=== PATIENT | female | born 1950 | race Caucasian/White ===

== ENCOUNTER 2016-06-10 09:39 | Day surgery (SDC) | payer OTHER ==
[~2016-06-10] VITALS: Ht 157.5 cm; Wt 91.6 kg
[~2016-06-10 09:39] MED LIST: ACARBOSE25 MG PO; ACCOLATE20 MG PO; ADVAIR 250/501 DISK IH; ALEVE220 MG PO; ALLEGRA180 MG PO; ASPIR 8181 M1 PO; ASPIR-TRIN325 M1 PO; BENICAR40 MG PO; BENZONATATE200 MG PO; CARDIZEM CD300 MG PO; CATAPRES0.2 MG PO; CEFTIN500 MG PO; CELEXA40 MG PO; CITALOPRAM HBR40 MG PO; CLONAZEPAM0.5 MG PO; CLONIDINE HCL0.2 MG PO; CYMBALTA60 MG PO; DEXILANT60 MG PO; DILTIAZEM 24HR300 MG PO; DIOVAN320 MG PO; DULERA 200 MCG/13 GM IH; ERGOCALCIF50000 UNIT PO; ERYTHROMYCIN250 MG PO; EXCEDRIN MIGRA1 EAC3 PO; FISH OIL 1,0001 EAC7 PO; FLAGYL500 MG PO; GABAPENTIN100 MG PO; GABAPENTIN800 MG PO; GLIPIZIDE10 MG PO; GLUCOPHAGE1000 MG PO; GLUCOTROL10 MG PO; HYDROCHLOROTHIA25 MG PO; JANUVIA100 MG PO; KEFLEX500 MG PO; LANTUS 10100 UNITS/ SC; LEVEMIR FL100 UNIT/1 SC; LEVEMIR100 UNIT/2 SQ; LEVOFLOXACIN750 MG PO; LISINOPRIL10 MG PO; LORATADINE10 M2 PO; LOW DOSE ASPIRI81 M1 PO; MELATONIN3 MG PO; MELATONIN300 MCG PO; METFORMIN HCL1000 MG PO; MIRALAX17 GM PO; MIRTAZAPINE45 MG PO; NEURONTIN800 MG PO; NOVOLOG100 UNIT/2 SQ; OMEPRAZOLE40 M1 PO; OXYBUTYNIN CHLOR5 MG PO; OXYCODONE HCL30 MG PO; OXYCONTIN15 MG PO; PANTOPRAZOLE SO40 MG PO; PRAVACHOL20 MG PO; PRAVASTATIN SOD20 MG PO; PRECOSE25 MG PO; PRILOSEC40 MG PO; PRINIVIL10 MG PO; PROAIR HFA8.5 GM IH; PROTONIX40 MG PO; PROVENTIL,2.5 MG/3 M IH; PROVENTIL,VENTOL2 MG PO; REMERON30 M2 PO; RESTORIL30 MG PO; SINGULAIR10 MG PO; TEMAZEPAM30 MG PO; TESSALON200 MG PO; THEO-24300 MG PO; THEOPHYLLINE A200 M1 PO; TOPROL XL100 MG PO; TOPROL XL50 MG PO; VALIUM2 MG PO; VENTOLIN HFA18 GM IH; VICODIN 5-3001 EACH PO; VITAMIN D50000 UNI1 PO
[2016-06-10 10:27] LABS: POINT-OF-CARE METER ID UU14174212
[2016-06-10 10:37] VITALS: BP 183/87
[2016-06-10] MEDS ORDERED: PERCOCET 5/31 TABLET PO (12:10)
[2016-06-10] MEDS ORDERED: OMEPRAZOLE40 M1 PO (12:10)
[2016-06-10] MEDS ORDERED: ANECREAM30 GM TP (12:10)
[2016-06-10] MEDS ORDERED: COLACE100 MG PO (12:10)
[2016-06-10 13:52] VITALS: BP 173/81
[2016-06-10 14:51] VITALS: BP 137/63
== END 2016-06-10 15:26 | disposition home or self-care (01) ==
LOC: SDC 09:39
PROVIDERS: Surgery
PROC: 06BY3ZC Excision of Hemorrhoidal Plexus, Percutaneous Approach (ICD-10-PCS; principal; 2016-06-10)
DX: K64.8 Other hemorrhoids (principal); K64.4 Residual hemorrhoidal skin tags; I10 Essential (primary) hypertension; E11.9 Type 2 diabetes mellitus without complications; M19.90 Unspecified osteoarthritis, unspecified site; G47.33 Obstructive sleep apnea (adult) (pediatric); J45.909 Unspecified asthma, uncomplicated; J44.9 Chronic obstructive pulmonary disease, unspecified; K21.9 Gastro-esophageal reflux disease without esophagitis
CPT/HCPCS: 82948; 88304; 93005; J0131; J0690; J2250; J2405; J3010

== ENCOUNTER 2016-06-11 00:36 | Emergency (ER) | payer OTHER ==
[~2016-06-11] VITALS: Ht 157.5 cm; Wt 89.5 kg
[~2016-06-11 00:36] MED LIST changes: +ANECREAM30 GM TP; +COLACE100 MG PO; +PERCOCET 5/31 TABLET PO
[2016-06-11 01:47] LABS: ADD MIUA? NO; BILIRUBIN NEGATIVE; BLOOD NEGATIVE; COLOR YELLOW ((YELLOW)); GLUCOSE (STRIP) NEGATIVE; KETONES NEGATIVE; LEUKOCYTES NEGATIVE; NITRITE NEGATIVE; PH, URINE 6.5 (5-8); PROTEIN (STRIP) NEGATIVE; UCUL ADDED? NO; UROBILINOGEN 0.2 MG/DL (0.2-1.0)
[2016-06-11 02:57] VITALS: BP 148/96
== END 2016-06-11 02:57 | disposition home or self-care (01) ==
LOC: EME 00:36
PROVIDERS: Physician Assistant
DX: R33.9 Retention of urine, unspecified (principal); J44.9 Chronic obstructive pulmonary disease, unspecified; E78.5 Hyperlipidemia, unspecified; K21.9 Gastro-esophageal reflux disease without esophagitis; E11.9 Type 2 diabetes mellitus without complications; Z79.4 Long term (current) use of insulin; Z79.82 Long term (current) use of aspirin; Z79.84 Long term (current) use of oral hypoglycemic drugs
CPT/HCPCS: 81003; 99281; 99285

== ENCOUNTER 2016-06-15 11:14 | Emergency (ER) | payer OTHER ==
[~2016-06-15] VITALS: Ht 157.5 cm; Wt 90.1 kg
[2016-06-15 12:30] LABS: ADD MIUA? YES; BILIRUBIN SMALL; BLOOD LARGE; GLUCOSE (STRIP) NEGATIVE; KETONES TRACE; LEUKOCYTES SMALL; NITRITE NEGATIVE; PROTEIN (STRIP) 100; SPECIFIC GRAVITY 1.023 (1.000-1.030)
[2016-06-15 12:32] LABS: COLOR AMBER ((YELLOW))
[2016-06-15 12:50] LABS: EPITHELIAL CELLS 1+; MUCUS 1+; RED BLOOD CELLS TNTC /HPF (0-5); WHITE BLOOD CELLS 0-5 /HPF (0-5)
[2016-06-15 12:51] LABS: BACTERIA 1+; CASTS NONE SEEN /LPF; CRYSTALS NONE SEEN
[2016-06-15 13:27] VITALS: BP 159/86
== END 2016-06-15 13:29 | disposition home or self-care (01) ==
LOC: RME 11:14 → EME 11:14 → RME 13:29
PROVIDERS: Physician Assistant
DX: R33.8 Other retention of urine (principal); T83.098A Other mechanical complication of other urinary catheter, initial encounter; K59.00 Constipation, unspecified; Z98.890 Other specified postprocedural states; E78.5 Hyperlipidemia, unspecified; E11.9 Type 2 diabetes mellitus without complications; Z79.84 Long term (current) use of oral hypoglycemic drugs; Z88.6 Allergy status to analgesic agent
CPT/HCPCS: 74000; 81003; 87086; 99281; 99284

== ENCOUNTER 2017-02-17 13:56 | Observation (INO) | payer OTHER ==
[~2017-02-17] VITALS: Ht 157.5 cm; Wt 80.2 kg
[~2017-02-17 13:56] MED LIST changes: -THEO-24300 MG PO; +THEO-24400 MG PO
[2017-02-17 15:01] LABS: HEMATOCRIT 31.6 % (36.0-46.0); MCH 23.3 PG (29.0-34.0); MCV 75.1 FL (83-99); PLATELET COUNT 127 K/uL (156-360); RBC DIS.WIDTH-CV 14.9 % (11.8-14.6); RED BLOOD COUNT 4.21 M/uL (3.80-5.20); WHITE BLOOD COUNT 7.3 K/uL (4.1-10.2)
[2017-02-17 15:06] LABS: CHLORIDE 104 mEq/L (99-109); POTASSIUM 3.5 mEq/L (3.7-5.4); SODIUM 143 mEq/L (136-147)
[2017-02-17 15:08] LABS: GLUCOSE 113 mg/dL (70-99)
[2017-02-17 15:09] LABS: ANION GAP 13 MEQ/L (2-14)
[2017-02-17 15:12] LABS: GFR ESTIMATE (CALCULATED) > 59 mL/min/
[2017-02-17 15:13] LABS: UREA NITROGEN (BUN) 17 mg/dL (9-23)
[2017-02-17 15:18] LABS: TROP-I INTERPRETATION NEGATIVE; TROPONIN-I < 0.01 ng/mL (0.0-0.30)
[2017-02-17 15:22] LABS: POINT-OF-CARE METER ID UU14100415
[2017-02-17 17:07] LABS: ADD MIUA? YES; BILIRUBIN NEGATIVE; BLOOD NEGATIVE; COLOR YELLOW ((YELLOW)); GLUCOSE (STRIP) NEGATIVE; KETONES NEGATIVE; LEUKOCYTES MODERATE; NITRITE NEGATIVE; PROTEIN (STRIP) NEGATIVE; SPECIFIC GRAVITY 1.013 (1.000-1.030); UROBILINOGEN 0.2 MG/DL (0.2-1.0)
[2017-02-17 17:45] LABS: BACTERIA RARE /HPF; BUDDING YEAST 2+; CALCIUM OXALATE CRYSTALS 3+ /HPF; EPITHELIAL CELLS 1+ /HPF; HYALINE CASTS 0-5 /LPF; MUCUS TRACE /LPF; RED BLOOD CELLS 0-5 /HPF (0-5); UCUL ADDED? NO; WHITE BLOOD CELLS 0-5 /HPF (0-5)
[2017-02-17] MEDS ORDERED: TRAZODONE HCL50 MG PO (20:34)
[2017-02-17] MEDS ORDERED: ALBUTEROL SULFAT2 MG PO (20:35)
[2017-02-17] MEDS ORDERED: GABAPENTIN800 MG PO (20:40)
[2017-02-17] MEDS ORDERED: LANTUS 3 M100 UNITS1 SC (20:45)
[2017-02-17 21:14] VITALS: BP 178/93
[2017-02-17 23:59] VITALS: BP 158/88
[2017-02-18 01:03] LABS: TROP-I INTERPRETATION NEGATIVE; TROPONIN-I < 0.01 ng/mL (0.0-0.30)
[2017-02-18 04:04] VITALS: BP 125/72
[2017-02-18 05:51] LABS: TROP-I INTERPRETATION NEGATIVE; TROPONIN-I < 0.01 ng/mL (0.0-0.30)
[2017-02-18 07:06] VITALS: BP 123/59
== END 2017-02-18 11:51 | disposition home or self-care (01) ==
LOC: EME 13:56 → 5WEST 19:58 → EDOF 19:58 → ENRESERV 19:59 → 5WEST 21:05
PROVIDERS: Emergency Medicine; Hospitalist
DX: R07.9 Chest pain, unspecified (principal); I12.9 Hypertensive chronic kidney disease with stage 1 through stage 4 chronic kidney disease, or unspecified chronic kidney disease; N18.9 Chronic kidney disease, unspecified; E11.22 Type 2 diabetes mellitus with diabetic chronic kidney disease; K44.9 Diaphragmatic hernia without obstruction or gangrene; K21.9 Gastro-esophageal reflux disease without esophagitis; E78.5 Hyperlipidemia, unspecified; J44.9 Chronic obstructive pulmonary disease, unspecified; E66.9 Obesity, unspecified; Z68.32 Body mass index [BMI] 32.0-32.9, adult; Z82.49 Family history of ischemic heart disease and other diseases of the circulatory system; Z83.3 Family history of diabetes mellitus; R51 Headache; R42 Dizziness and giddiness; Z90.49 Acquired absence of other specified parts of digestive tract; K74.60 Unspecified cirrhosis of liver; Z79.4 Long term (current) use of insulin; Z79.82 Long term (current) use of aspirin
CPT/HCPCS: 71020; 71275; 74177; 80048; 81003; 82948; 84484; 85027; 93005; 99281; 99285; G0378; J0360; J1650; J2270; J7040

== ENCOUNTER → 2017-06-13 | Outpatient (CLI) | payer OTHER ==
[~2017-06-13] MED LIST changes: +ALBUTEROL SULFAT2 MG PO; +LANTUS 3 M100 UNITS1 SC; +LEVAQUIN250 MG PO; +LORCET 5-325 M1 EACH PO; +PREDNISONE10 MG PO; +TRAZODONE HCL50 MG PO; +ZESTRIL10 MG PO
== END | disposition home or self-care (01) ==
LOC: RAD 14:15
DX: J18.9 Pneumonia, unspecified organism (principal)
CPT/HCPCS: 71045

== ENCOUNTER → 2017-06-13 | Outpatient (CLI) | payer OTHER ==
[~2017-06-13] VITALS: Ht 157.5 cm; Wt 78.0 kg
== END | disposition home or self-care (01) ==
LOC: AMB 05-30 10:30
PROC: 0DJ0XZZ Inspection of Upper Intestinal Tract, External Approach (ICD-10-PCS; principal; 2017-06-13)
DX: R11.0 Nausea (principal); Z53.09 Procedure and treatment not carried out because of other contraindication; R53.1 Weakness

== ENCOUNTER → 2017-06-30 | Outpatient (CLI) | payer OTHER ==
[~2017-06-30] VITALS: Ht 157.5 cm; Wt 78.0 kg
[~2017-06-30] MED LIST changes: +ZOFRAN ODT4 MG PO
== END | disposition home or self-care (01) ==
LOC: AMB 10:00
PROVIDERS: Internal Medicine
DX: K31.7 Polyp of stomach and duodenum (principal); Z79.82 Long term (current) use of aspirin; K74.60 Unspecified cirrhosis of liver; J43.9 Emphysema, unspecified; E11.42 Type 2 diabetes mellitus with diabetic polyneuropathy; Z79.4 Long term (current) use of insulin; K21.9 Gastro-esophageal reflux disease without esophagitis; E78.5 Hyperlipidemia, unspecified; I10 Essential (primary) hypertension; G47.33 Obstructive sleep apnea (adult) (pediatric); Z90.49 Acquired absence of other specified parts of digestive tract; Z90.710 Acquired absence of both cervix and uterus; Z83.3 Family history of diabetes mellitus; Z82.3 Family history of stroke; Z82.49 Family history of ischemic heart disease and other diseases of the circulatory system; Z84.1 Family history of disorders of kidney and ureter; Z88.5 Allergy status to narcotic agent
CPT/HCPCS: 82948; 88305; 88342 TC

== ENCOUNTER 2017-07-01 17:40 | Emergency (ER) | payer OTHER ==
[~2017-07-01] VITALS: Ht 157.5 cm; Wt 73.5 kg
[~2017-07-01 17:40] MED LIST changes: -ZOFRAN ODT4 MG PO
[2017-07-01 18:23] LABS: HEMATOCRIT 38.2 % (36.0-46.0); HEMOGLOBIN 12.7 G/DL (11.9-15.5); MCH 25.7 PG (29.0-34.0); MCHC 33.2 G/DL (30.0-36.0); MCV 77.3 FL (83-99); RBC DIS.WIDTH-CV 14.4 % (11.8-14.6); RBC DIS.WIDTH-SD 39.8 % (39-53); RED BLOOD COUNT 4.94 M/uL (3.80-5.20); WHITE BLOOD COUNT 8.2 K/uL (4.1-10.2)
[2017-07-01 18:29] LABS: PLATELET COUNT 179 K/uL (156-360)
[2017-07-01 18:38] LABS: CHLORIDE 101 mEq/L (99-109); POTASSIUM 2.9 mEq/L (3.7-5.4); SODIUM 140 mEq/L (136-147)
[2017-07-01 18:39] LABS: GLUCOSE 281 mg/dL (70-99)
[2017-07-01 18:43] LABS: CREATININE 0.9 mg/dL (0.6-1.3); GFR ESTIMATE (CALCULATED) > 59 mL/min/
[2017-07-01 18:44] LABS: UREA NITROGEN (BUN) 7 mg/dL (9-23)
[2017-07-01 19:16] LABS: ALBUMIN 4.2 g/dL (3.2-4.8)
[2017-07-01 19:19] LABS: TOTAL PROTEIN 6.8 g/dL (6.4-8.3)
[2017-07-01 19:20] LABS: TOTAL BILIRUBIN 0.4 mg/dL (0.0-1.0)
[2017-07-01 19:22] LABS: ALKALINE PHOSPHATASE 83 IU/L (3-129)
[2017-07-01 19:24] LABS: AST (GOT) 10 IU/L (2-34); DIRECT BILIRUBIN 0.2 mg/dL (0.0-0.3)
[2017-07-01 19:25] LABS: ALT (GPT) 13 IU/L (3-49); LIPASE 9 U/L (1.0-51.0)
[2017-07-01 20:40] LABS: APPEARANCE CLEAR ((CLEAR)); BILIRUBIN NEGATIVE; BLOOD NEGATIVE; COLOR YELLOW ((YELLOW)); GLUCOSE (STRIP) >=500; KETONES NEGATIVE; LEUKOCYTES NEGATIVE; NITRITE NEGATIVE; PROTEIN (STRIP) 30; SPECIFIC GRAVITY 1.038 (1.000-1.030); UCUL ADDED? NO; UROBILINOGEN 0.2 MG/DL (0.2-1.0)
[2017-07-01] MEDS ORDERED: ZOFRAN ODT4 MG PO (22:16)
[2017-07-01 22:25] VITALS: BP 122/84
== END 2017-07-01 22:58 | disposition home or self-care (01) ==
LOC: EME 17:40
DX: K29.70 Gastritis, unspecified, without bleeding (principal); K74.60 Unspecified cirrhosis of liver; E87.6 Hypokalemia; R93.5 Abnormal findings on diagnostic imaging of other abdominal regions, including retroperitoneum; K21.9 Gastro-esophageal reflux disease without esophagitis; J44.9 Chronic obstructive pulmonary disease, unspecified; I12.9 Hypertensive chronic kidney disease with stage 1 through stage 4 chronic kidney disease, or unspecified chronic kidney disease; N18.9 Chronic kidney disease, unspecified; E11.22 Type 2 diabetes mellitus with diabetic chronic kidney disease; E78.5 Hyperlipidemia, unspecified; G62.9 Polyneuropathy, unspecified; F41.9 Anxiety disorder, unspecified; F32.9 Major depressive disorder, single episode, unspecified; Z98.890 Other specified postprocedural states; Z79.82 Long term (current) use of aspirin; Z79.4 Long term (current) use of insulin; Z79.84 Long term (current) use of oral hypoglycemic drugs; Z90.49 Acquired absence of other specified parts of digestive tract; Z90.89 Acquired absence of other organs; Z88.5 Allergy status to narcotic agent; Z88.8 Allergy status to other drugs, medicaments and biological substances
CPT/HCPCS: 71046; 74177; 80048; 80076; 81003; 83690; 85027; 93005; 99281; 99284; C9113; J2405; J3480; J7030; J7040

== ENCOUNTER 2017-07-14 18:15 | Emergency (ER) | payer OTHER ==
[~2017-07-14] VITALS: Ht 157.5 cm; Wt 73.2 kg
[~2017-07-14 18:15] MED LIST changes: +ZOFRAN ODT4 MG PO
[2017-07-14 19:29] LABS: HEMATOCRIT 36.5 % (36.0-46.0); HEMOGLOBIN 11.9 G/DL (11.9-15.5); MCH 25.8 PG (29.0-34.0); MCHC 32.6 G/DL (30.0-36.0); RBC DIS.WIDTH-SD 40.1 % (39-53); RED BLOOD COUNT 4.62 M/uL (3.80-5.20); WHITE BLOOD COUNT 5.4 K/uL (4.1-10.2)
[2017-07-14 19:36] LABS: ALBUMIN 3.8 g/dL (3.2-4.8); CHLORIDE 98 mEq/L (99-109); POTASSIUM 3.4 mEq/L (3.7-5.4); SODIUM 137 mEq/L (136-147)
[2017-07-14 19:38] LABS: TOTAL PROTEIN 6.2 g/dL (6.4-8.3)
[2017-07-14 19:40] LABS: TOTAL BILIRUBIN 0.6 mg/dL (0.0-1.0)
[2017-07-14 19:42] LABS: ALKALINE PHOSPHATASE 95 IU/L (3-129); CREATININE 1.4 mg/dL (0.6-1.3); GFR ESTIMATE (CALCULATED) 40 mL/min/
[2017-07-14 19:43] LABS: UREA NITROGEN (BUN) 6 mg/dL (9-23)
[2017-07-14 19:44] LABS: AST (GOT) 13 IU/L (2-34)
[2017-07-14 19:45] LABS: ALT (GPT) 12 IU/L (3-49); LIPASE 20 U/L (1.0-51.0)
[2017-07-14 19:51] LABS: GLUCOSE 484 mg/dL (70-99)
[2017-07-14 20:08] LABS: PLAT.SUFFICIENCY DECREASED; PLATELET COUNT 97 K/uL (156-360)
[2017-07-14 21:07] LABS: APPEARANCE CLEAR ((CLEAR)); BILIRUBIN NEGATIVE; BLOOD NEGATIVE; COLOR YELLOW ((YELLOW)); GLUCOSE (STRIP) >=500; KETONES NEGATIVE; LEUKOCYTES NEGATIVE; NITRITE NEGATIVE; PROTEIN (STRIP) NEGATIVE; SPECIFIC GRAVITY 1.037 (1.000-1.030); UCUL ADDED? NO; UROBILINOGEN 0.2 MG/DL (0.2-1.0)
[2017-07-14 21:43] LABS: CARBON DIOXIDE (BICARBONATE) 35.7 MEQ/L (20-31)
[2017-07-14] MEDS ORDERED: CITRATE OF MAG296 ML PO (23:45)
[2017-07-15 00:12] VITALS: BP 162/87
== END 2017-07-15 00:44 | disposition home or self-care (01) ==
LOC: EME 18:15
PROVIDERS: Physician Assistant Medical
DX: K59.00 Constipation, unspecified (principal); E11.65 Type 2 diabetes mellitus with hyperglycemia; I12.9 Hypertensive chronic kidney disease with stage 1 through stage 4 chronic kidney disease, or unspecified chronic kidney disease; E11.22 Type 2 diabetes mellitus with diabetic chronic kidney disease; N18.9 Chronic kidney disease, unspecified; Z79.4 Long term (current) use of insulin; J44.9 Chronic obstructive pulmonary disease, unspecified; E78.5 Hyperlipidemia, unspecified; K21.9 Gastro-esophageal reflux disease without esophagitis; F32.9 Major depressive disorder, single episode, unspecified; F41.9 Anxiety disorder, unspecified; Z88.5 Allergy status to narcotic agent
CPT/HCPCS: 74177; 80053; 81003; 82010; 82803; 82948; 83690; 85027; 99281; 99285; J7030

== ENCOUNTER 2017-07-24 11:10 | Emergency (ER) | payer OTHER ==
[~2017-07-24] VITALS: Ht 160 cm; Wt 74.0 kg
[~2017-07-24 11:10] MED LIST changes: +CITRATE OF MAG296 ML PO
[2017-07-24 11:45] LABS: HEMOGLOBIN 11.6 G/DL (11.9-15.5); MCH 25.7 PG (29.0-34.0); MCHC 32.2 G/DL (30.0-36.0); MCV 79.8 FL (83-99); RBC DIS.WIDTH-CV 14.4 % (11.8-14.6); RBC DIS.WIDTH-SD 41.7 % (39-53); RED BLOOD COUNT 4.51 M/uL (3.80-5.20)
[2017-07-24 11:46] LABS: PLATELET COUNT 148 K/uL (156-360)
[2017-07-24 11:49] LABS: CHLORIDE 98 mEq/L (99-109); POTASSIUM 3.7 mEq/L (3.7-5.4); SODIUM 136 mEq/L (136-147)
[2017-07-24 11:51] LABS: GLUCOSE 306 mg/dL (70-99)
[2017-07-24 11:54] LABS: GFR ESTIMATE (CALCULATED) 59 mL/min/
[2017-07-24 11:55] LABS: UREA NITROGEN (BUN) 12 mg/dL (9-23)
[2017-07-24 12:30] LABS: ALBUMIN 3.8 g/dL (3.2-4.8)
[2017-07-24 12:32] LABS: TOTAL PROTEIN 6.4 g/dL (6.4-8.3)
[2017-07-24 12:34] LABS: TOTAL BILIRUBIN 0.7 mg/dL (0.0-1.0)
[2017-07-24 12:35] LABS: ALKALINE PHOSPHATASE 83 IU/L (3-129)
[2017-07-24 12:38] LABS: ALT (GPT) 12 IU/L (3-49); AST (GOT) 12 IU/L (2-34); DIRECT BILIRUBIN 0.3 mg/dL (0.0-0.3)
[2017-07-24 13:28] LABS: TROP-I INTERPRETATION NEGATIVE; TROPONIN-I < 0.01 ng/mL (0.0-0.30)
[2017-07-24 13:34] LABS: APPEARANCE SL.HAZY ((CLEAR)); BILIRUBIN NEGATIVE; BLOOD NEGATIVE; COLOR YELLOW ((YELLOW)); GLUCOSE (STRIP) >=500; KETONES NEGATIVE; LEUKOCYTES NEGATIVE; NITRITE NEGATIVE; PROTEIN (STRIP) 30; SPECIFIC GRAVITY 1.012 (1.000-1.030); UROBILINOGEN 0.2 MG/DL (0.2-1.0)
[2017-07-24 13:47] LABS: BACTERIA 2+ /HPF; EPITHELIAL CELLS 3+ /HPF; HYALINE CASTS 30-40 /LPF; MUCUS 2+ /LPF; RED BLOOD CELLS 0-5 /HPF (0-5); UCUL ADDED? YES; WHITE BLOOD CELLS 0-5 /HPF (0-5)
[2017-07-24 14:54] LABS: TROP-I INTERPRETATION NEGATIVE; TROPONIN-I < 0.01 ng/mL (0.0-0.30)
[2017-07-24 16:10] VITALS: BP 153/82
== END 2017-07-24 16:12 | disposition home or self-care (01) ==
LOC: EME 11:10
PROVIDERS: Nurse Practitioner Family
DX: R53.1 Weakness (principal); R09.02 Hypoxemia; E11.65 Type 2 diabetes mellitus with hyperglycemia; R94.31 Abnormal electrocardiogram [ECG] [EKG]; Z79.4 Long term (current) use of insulin; E11.42 Type 2 diabetes mellitus with diabetic polyneuropathy; E11.22 Type 2 diabetes mellitus with diabetic chronic kidney disease; I12.9 Hypertensive chronic kidney disease with stage 1 through stage 4 chronic kidney disease, or unspecified chronic kidney disease; N18.9 Chronic kidney disease, unspecified; E78.5 Hyperlipidemia, unspecified; K74.60 Unspecified cirrhosis of liver; K21.9 Gastro-esophageal reflux disease without esophagitis; J44.9 Chronic obstructive pulmonary disease, unspecified; F41.9 Anxiety disorder, unspecified; F32.9 Major depressive disorder, single episode, unspecified; Z90.49 Acquired absence of other specified parts of digestive tract; Z90.710 Acquired absence of both cervix and uterus; Z88.5 Allergy status to narcotic agent; Z88.8 Allergy status to other drugs, medicaments and biological substances
CPT/HCPCS: 71046; 74019; 80048; 80076; 81003; 82948; 84484; 85027; 87086 GA; 93005; 99281; 99285; J7030

== ENCOUNTER 2017-08-15 08:34 | Day surgery (SDC) | payer OTHER ==
[~2017-08-15] VITALS: Ht 157.5 cm; Wt 74.8 kg
[~2017-08-15 08:34] MED LIST changes: +ALEVE220 M2 PO
[2017-08-15 09:11] VITALS: BP 146/72
[2017-08-15] MEDS ORDERED: PERCOCET 5/31 TABLET PO (11:31)
[2017-08-15] MEDS ORDERED: COLACE100 MG PO (11:31)
[2017-08-15 14:05] VITALS: BP 170/85
[2017-08-15 15:01] VITALS: BP 155/79
== END 2017-08-15 15:09 | disposition home or self-care (01) ==
LOC: SDC 08:34
PROVIDERS: Surgery
PROC: 0JB70ZZ Excision of Back Subcutaneous Tissue and Fascia, Open Approach (ICD-10-PCS; principal; 2017-08-15)
DX: D17.1 Benign lipomatous neoplasm of skin and subcutaneous tissue of trunk (principal); M19.90 Unspecified osteoarthritis, unspecified site; K74.60 Unspecified cirrhosis of liver; E11.42 Type 2 diabetes mellitus with diabetic polyneuropathy; J43.9 Emphysema, unspecified; K21.9 Gastro-esophageal reflux disease without esophagitis; E78.5 Hyperlipidemia, unspecified; I10 Essential (primary) hypertension; G47.33 Obstructive sleep apnea (adult) (pediatric); D69.6 Thrombocytopenia, unspecified; Z79.82 Long term (current) use of aspirin; Z79.4 Long term (current) use of insulin; Z90.49 Acquired absence of other specified parts of digestive tract; Z90.710 Acquired absence of both cervix and uterus; Z83.3 Family history of diabetes mellitus; Z82.3 Family history of stroke; Z82.49 Family history of ischemic heart disease and other diseases of the circulatory system; Z84.1 Family history of disorders of kidney and ureter; Z88.5 Allergy status to narcotic agent
CPT/HCPCS: 82948; 88304; J0690; J1170; J2250; J7643; Q0175; S0020